=== PATIENT | female | born 1985 | race African-American/Black ===

== ENCOUNTER → 2017-07-02 | Outpatient (CLI) | payer OTHER ==
[~2017-07-02] VITALS: Ht 160 cm; Wt 105.0 kg
[~2017-07-02] MED LIST: AMOXICILLIN500 MG PO; CIPRO500 MG PO; DELSYM30 MG/5 M1 PO; IRON325 M1 PO; LEVOTHYROXINE25 MCG PO; PRENATAL TABLE1 EACH PO; REGLAN10 MG PO; SYNTHROID75 MCG PO; VENTOLIN HFA18 GM IH; ZITHROMAX Z-PA250 MG PO
[2017-07-02 14:19] VITALS: BP 119/58
== END | disposition home or self-care (01) ==
LOC: IVINF 12:05
DX: Z31.82 Encounter for Rh incompatibility status (principal); Z3A.28 28 weeks gestation of pregnancy; Z67.21 Type B blood, Rh negative
CPT/HCPCS: J2790

== ENCOUNTER 2017-09-15 23:11 | Outpatient (CLI) | payer OTHER ==
[~2017-09-15] VITALS: Ht 154.9 cm; Wt 107.5 kg
[2017-09-15] MEDS ORDERED: LEVO-T100 MCG PO (23:48)
[2017-09-15 23:56] VITALS: BP 118/69
== END 2017-09-16 | disposition home or self-care (01) ==
LOC: LDRP-OP 23:11 → 2WEST 23:12 → LDRP-OP 10-22 08:51
DX: O47.1 False labor at or after 37 completed weeks of gestation (principal); Z3A.39 39 weeks gestation of pregnancy
CPT/HCPCS: 59025; G0378

== ENCOUNTER 2017-09-20 16:44 | Inpatient (IN) | payer OTHER ==
[~2017-09-20] VITALS: Ht 154.9 cm; Wt 107.2 kg
[2017-09-20] VITALS (29 sets, daily range): BP systolic 91–149; BP diastolic 52–84
[~2017-09-20 16:44] MED LIST changes: +LEVO-T100 MCG PO
[2017-09-20] MEDS ORDERED: TYLENOL PM EX-1 EACH PO (17:34)
[2017-09-20 18:38] LABS: EOSINOPHIL (%) 1.1 % (0-5); EOSINOPHIL COUNT 0.1 K/uL (0-0.3); HEMATOCRIT 36.2 % (36.0-46.0); IMMATURE GRANULOCYTE (%) 0.4 % (0.0-0.7); INSTRUMENT ABS NEUTROPHIL CT 4.5 K/uL; LYMPHOCYTE COUNT 2.3 K/uL (1.0-2.8); MCH 28.4 PG (29.0-34.0); MCHC 33.7 G/DL (30.0-36.0); MCV 84.2 FL (83-99); MEAN PLAT.VOLUME 9.3 uM^3 (9.5-12.4); MONOCYTE (%) 9.2 % (3-12); MONOCYTE COUNT 0.7 K/uL (0-0.8); NEUTROPHIL COUNT 4.5 K/uL (1.8-6.4); PLATELET COUNT 358 K/uL (156-360); RBC DIS.WIDTH-CV 14.7 % (11.8-14.6); RBC DIS.WIDTH-SD 44.4 % (39-53); WHITE BLOOD COUNT 7.6 K/uL (4.1-10.2)
[2017-09-21] VITALS (37 sets, daily range): BP systolic 99–164; BP diastolic 53–88
[2017-09-21] MEDS ORDERED: IBUPROFEN800 MG PO (10:52)
[2017-09-22 08:00] VITALS: BP 110/59
[2017-09-23 07:23] VITALS: BP 124/75
== END 2017-09-23 12:11 | disposition home or self-care (01) | DRG 775 ==
LOC: LDRP-OP 16:44 → 2WEST 16:46 → LDRP-OP 10-22 03:43
PROVIDERS: Advanced Practice Midwife
PROC: 3E0R3BZ Introduction of Anesthetic Agent into Spinal Canal, Percutaneous Approach (ICD-10-PCS; principal; 2017-09-20)
PROC: 10907ZC Drainage of Amniotic Fluid, Therapeutic from Products of Conception, Via Natural or Artificial Opening (ICD-10-PCS; principal; 2017-09-20)
PROC: 00HU33Z Insertion of Infusion Device into Spinal Canal, Percutaneous Approach (ICD-10-PCS; principal; 2017-09-20)
PROC: 10E0XZZ Delivery of Products of Conception, External Approach (ICD-10-PCS; 2017-09-21)
DX: O76 Abnormality in fetal heart rate and rhythm complicating labor and delivery (principal); O77.0 Labor and delivery complicated by meconium in amniotic fluid; O89.4 Spinal and epidural anesthesia-induced headache during the puerperium; O36.5990 Maternal care for other known or suspected poor fetal growth, unspecified trimester, not applicable or unspecified; O34.33 Maternal care for cervical incompetence, third trimester; Z3A.39 39 weeks gestation of pregnancy; Z37.0 Single live birth; O99.284 Endocrine, nutritional and metabolic diseases complicating childbirth; E03.9 Hypothyroidism, unspecified; O99.02 Anemia complicating childbirth; D64.9 Anemia, unspecified; O99.214 Obesity complicating childbirth; E66.9 Obesity, unspecified; O99.62 Diseases of the digestive system complicating childbirth; K21.9 Gastro-esophageal reflux disease without esophagitis; G43.909 Migraine, unspecified, not intractable, without status migrainosus; O99.353 Diseases of the nervous system complicating pregnancy, third trimester; Z87.891 Personal history of nicotine dependence; Z68.30 Body mass index [BMI] 30.0-30.9, adult
CPT/HCPCS: 83030; 85025; 86850; 86900; 86901; C1755; G0378; J2790; J3010; J7120

== ENCOUNTER 2018-03-11 18:53 | Emergency (ER) | payer OTHER ==
[~2018-03-11] VITALS: Ht 154.9 cm; Wt 112.7 kg
[~2018-03-11 18:53] MED LIST changes: +IBUPROFEN800 MG PO; +TYLENOL PM EX-1 EACH PO
[2018-03-11 19:38] LABS: HEMATOCRIT 37.9 % (36.0-46.0); HEMOGLOBIN 12.7 G/DL (11.9-15.5); MCH 29.7 PG (29.0-34.0); MCHC 33.5 G/DL (30.0-36.0); MCV 88.6 FL (83-99); PLATELET COUNT 373 K/uL (156-360); RBC DIS.WIDTH-CV 13.8 % (11.8-14.6); RBC DIS.WIDTH-SD 44.6 % (39-53); RED BLOOD COUNT 4.28 M/uL (3.80-5.20); WHITE BLOOD COUNT 5.4 K/uL (4.1-10.2)
[2018-03-11 19:50] LABS: ALBUMIN 4.5 g/dL (3.2-4.8)
[2018-03-11 19:51] LABS: CHLORIDE 101 mEq/L (99-109); POTASSIUM 3.9 mEq/L (3.7-5.4); SODIUM 140 mEq/L (136-147)
[2018-03-11 19:53] LABS: GLUCOSE 89 mg/dL (70-99)
[2018-03-11 19:55] LABS: TOTAL BILIRUBIN 0.3 mg/dL (0.0-1.0)
[2018-03-11 19:56] LABS: ALKALINE PHOSPHATASE 64 IU/L (3-129); GFR ESTIMATE (CALCULATED) > 59 mL/min/
[2018-03-11 19:58] LABS: AST (GOT) 40 IU/L (2-34); UREA NITROGEN (BUN) 12 mg/dL (9-23)
[2018-03-11 19:59] LABS: ALT (GPT) 41 IU/L (3-49)
[2018-03-11 20:06] LABS: QUANTITATIVE HCG < 4.0 MIU/ML
[2018-03-11 21:02] LABS: APPEARANCE CLEAR ((CLEAR)); BILIRUBIN NEGATIVE; BLOOD NEGATIVE; COLOR YELLOW ((YELLOW)); GLUCOSE (STRIP) NEGATIVE; KETONES NEGATIVE; LEUKOCYTES NEGATIVE; NITRITE NEGATIVE; PROTEIN (STRIP) NEGATIVE; SPECIFIC GRAVITY 1.013 (1.000-1.030); UCUL ADDED? NO; UROBILINOGEN 0.2 MG/DL (0.2-1.0)
[2018-03-11 22:16] VITALS: BP 137/95
[2018-03-12 08:24] LABS: THYROTROPIN (TSH) > 100 MIU/L (0.4-5.5)
== END 2018-03-11 22:17 | disposition home or self-care (01) ==
LOC: EME 18:53
DX: R20.2 Paresthesia of skin (principal); E03.9 Hypothyroidism, unspecified; R79.89 Other specified abnormal findings of blood chemistry; Z87.891 Personal history of nicotine dependence; Z91.040 Latex allergy status
CPT/HCPCS: 80053; 81003; 84443; 84702; 85027; 99281; 99284